=== PATIENT | male | born 1980 | race Caucasian/White ===

== ENCOUNTER 2020-10-09 08:28 | Emergency (ER) | payer SELFPAY ==
[2020-10-09 08:43] VITALS: BP 124/85; PULSE 70; RESP 16; TEMP 36.7; O2SAT 97
[2020-10-09] MEDS: KETOROLAC 15 MG/ML VIAL (*BKC) IV PUSH (09:46)
[2020-10-09 09:49] LABS: Basophils Percent Auto 0.5 % (0.2-1.2); Eosinophils Absolute Auto 0.1 K/mm3 (0-0.3); Eosinophils Percent Auto 1.9 % (0-4.4); Hematocrit 40.1 % (42.0-52.0); Hemoglobin 14.1 g/dL (14.0-18.0); Immature Granulocyte Absolute 0.02 K/mm3 (0.00-0.031); Immature Granulocyte Percent A 0.3 % (0-0.5); Lymphocytes Absolute Auto 2.61 K/mm3 (0.9-3.2); Lymphocytes Percent Auto 35.2 % (18.3-44.2); Mean Corpuscular HGB Conc 35.2 g/dl (32-36); Mean Corpuscular Hemoglobin 33.7 pg (26-34); Mean Corpuscular Volume 95.9 fl (80-100); Mean Platelet Volume 9.8 fl (7.4-10.4); Monocytes Absolute Auto 0.5 K/mm3 (0.1-0.6); Monocytes Percent Auto 6.9 % (2.6-8.5); Neutrophils Absolute Auto 4.1 K/mm3 (1.3-6.7); Neutrophils Percent Auto 55.2 % (45.5-73.1); Platelet Count Result 267 k/mm3 (150-375); Red Blood Count 4.18 M/mm3 (4.6-6.20); Red Cell Distribution Width 11.9 % (11.5-14.5); White Blood Count 7.4 K/mm3 (4.5-10.0)
[2020-10-09 10:34] LABS: Anion Gap 9 mmol/L (8-16); Blood Urea Nitrogen 17 mg/dL (9-20); CRP 0.5 mg/dL (<1.0); Calcium 9.3 mg/dL (8.4-10.2); Carbon Dioxide 25 mmol/L (22-30); Chloride 107 mmol/L (98-107); Estimated CRCL calculation 92 ml/min; Estimated Glomerular Filt Rate > 60; Glucose 113 mg/dL (75-110); Potassium 3.3 mmol/L (3.4-5.0); Sodium 141 mmol/L (137-145)
[2020-10-09 11:13] LABS: Erythrocyte Sedimentation Rate 22 mm/hr (0-20)
--- NOTE | 2020-10-09 12:04 | ED.GENADULT ---
HPI - General Adult General Chief complaint: Upper Respiratory Infection Stated complaint: URI symptoms Time Seen by Provider: 10/09/20 08:38 History of Present Illness HPI narrative: Patient is a 40-year-old male who presents ER with right-sided headache. Ongoing for 4 days. Most intense 2 days ago. No fevers or chills or sweats. No change in vision or hearing. Reports he had a lot of tenderness over his right temporal region and felt like he could feel a knot over a vein. No loss of vision. No pain in his jaw or neck. Reports history of headaches in the past are usually related to sinuses but he had not been having sinus congestion. Reports mild ear discomfort at the time. Related Data Allergies Allergy/AdvReac Type Severity Reaction Status Date / Time banana Allergy Unknown Hives Verified 10/09/20 08:45 kiwi Allergy Unknown Hives Verified 10/09/20 08:45 Review of Systems Review of Systems: All systems reviewed & are unremarkable except as noted in HPI and below Constitutional: Constitutional: Denies chills, Denies fever(s) and Denies weakness Eyes: Eyes: Denies change in vision and Denies photophobia ENT: Denies nasal congestion and Denies sore throat Cardiovascular: Cardiovascular: Denies chest pain, Denies rapid heart rate and Denies radiating jaw, neck or arm pain Respiratory: Respiratory: Denies cough and Denies dyspnea Neurologic: Denies syncope, Reports headache(s), Denies focal weakness and Denies numbness PMFSH Past Medical History Medical History (Updated 10/09/20 @ 12:10 by Ryder Aguila MD) Healthy adult male Surgical History Surgical History (Updated 10/09/20 @ 12:06 by Ryder Aguila MD) History of appendectomy Social History Social History (Updated 10/09/20 @ 12:06 by Ryder Aguila MD) Social History: History of tobacco use Exam Narrative: Exam Narrative: GENERAL: Well-appearing, well-nourished, and in no acute distress. HEAD: Normocephalic, atraumatic. EYES: PERRL and EOMI. ENT: Mucous membranes moist. TMs normal bilaterally. Normal posterior pharynx without tonsillar hypertrophy or exudate. Uvula midline and nonedematous. CHEST: Clear to auscultation. No respiratory distress. HEART: Regular rate and rhythm. Normal peripheral pulses. ABDOMEN: Soft, nontender, nondistended. EXTREMITIES: Normal range of motion. No edema. SKIN: Warm, dry, no rash. NEURO: Alert and oriented x3. Course Course Emergency Course: Patient resting comfortably. Recommend follow-up with PCP and may need further work-up for headache and history of previous headaches. Recommend anti-inflammatory medications. Significant improvement in discomfort with Toradol. Vital Signs Vital signs: Vital Signs Temperature 98.0 F 10/09/20 08:43 Pulse Rate 70 10/09/20 08:43 Respiratory Rate 16 10/09/20 08:43 Blood Pressure 124/85 10/09/20 08:43 Pulse Oximetry 97 10/09/20 08:43 Temperature 98.0 F 10/09/20 08:43 Pulse Rate 70 10/09/20 08:43 Respiratory Rate 16 10/09/20 08:43 Blood Pressure 124/85 10/09/20 08:43 Pulse Oximetry 97 10/09/20 08:43 Medical Decision Making Vital Signs Vital Signs: Vital Signs Temperature 98.0 F 10/09/20 08:43 Pulse Rate 70 10/09/20 08:43 Respiratory Rate 16 10/09/20 08:43 Blood Pressure 124/85 10/09/20 08:43 Pulse Oximetry 97 10/09/20 08:43 Temperature 98.0 F 10/09/20 08:43 Pulse Rate 70 10/09/20 08:43 Respiratory Rate 16 10/09/20 08:43 Blood Pressure 124/85 10/09/20 08:43 Pulse Oximetry 97 10/09/20 08:43 Lab Data Result diagrams: 10/09/20 09:28 10/09/20 09:28 Labs: Lab Results 10/09/20 10/09/20 Range/Units 09:28 09:28 WBC 7.4 (4.5-10.0) K/mm3 RBC 4.18 L (4.6-6.20) M/mm3 Hgb 14.1 (14.0-18.0) g/dL Hct 40.1 L (42.0-52.0) % MCV 95.9 (80-100) fl MCH 33.7 (26-34) pg MCHC 35.2 (32-36) g/dl RDW 11.9 (11.5-14.5) %
[2020-10-09 12:10] VITALS: BP 118/83; PULSE 63; RESP 14; TEMP 36.9; O2SAT 100
[2020-10-09 12:19] VITALS: BP 118/83; PULSE 59; RESP 16
== END 2020-10-09 12:19 | disposition home or self-care (01) ==
PROVIDERS: Emergency Provider Emergency Medicine
DX: R51.9 Headache, unspecified (principal); Z87.891 Personal history of nicotine dependence
CPT/HCPCS: 36415; 80048; 85025; 85652; 86140; 96374; 99284; J1885